=== PATIENT | female | born 1995 | race Caucasian/White ===

== ENCOUNTER 2021-03-18 22:14 | Emergency (ER) | payer OTHER, SELFPAY ==
--- NOTE | ~2021-03-18 | CT_ITS ---
EXAMINATION: CT abdomen pelvis wo con DATE: 03/18/2021 23:09 INDICATION: Right flank pain TECHNIQUE: Computed tomography (CT) of the abdomen and pelvis was performed without intravenous contr ast. The dose-length product (DLP) was 270.22 mGy-cm. Automated exposure control and iterative recons truction technique were employed. COMPARISON: None FINDINGS: Minimal dependent atelectasis is present in the lung bases. The heart size is normal. The l iver, spleen, pancreas, gallbladder, and adrenal glands are normal. There is a [address] one right kidney. No stones are present in the left kidney, ureters, or the bladder. There is no hydr onephrosis or hydroureter. No pathologically enlarged abdominal or pelvic lymph nodes are identified. There is no free intraperitoneal gas or evidence of bowel obstruction. The appendix is normal. There is a fat-containing umbilical hernia. IMPRESSION: 1. No CT correlate for the patient's symptoms. Nonobstructing right nephrolithiasis. Reviewed, dictated and finalized at location A. IMPRESSION: 1. No CT correlate for the patient's symptoms. Nonobstructing right nephrolithi asis.
[2021-03-18 22:20] VITALS: BP 142/98; PULSE 120; RESP 18; TEMP 36.7; O2SAT 99
--- NOTE | 2021-03-18 22:27 | ED.ABDPAIN ---
HPI - Abdominal Pain General Chief Complaint: Abdominal Pain Stated Complaint: Kidney stone Time Seen by Provider: 03/18/21 22:16 History of Present Illness HPI narrative: Right flank pain since yesterday. Radiates down the lateral portion of the leg. Associated with nausea and dysuria. Similar symptoms with kidney stone in the past. No fever, hematuria, vomiting, diarrhea, CP, SOB. Related Data Allergies Allergy/AdvReac Type Severity Reaction Status Date / Time hydromorphone [From Dilaudid] Allergy Anaphylactic Verified 03/18/21 22:28 Shock Review of Systems Review of Systems: All systems reviewed & are unremarkable except as noted in HPI and below Constitutional: Constitutional: Denies fever(s) ENT: Denies sore throat Cardiovascular: Cardiovascular: Denies chest pain Respiratory: Respiratory: Denies dyspnea Gastrointestinal: Gastrointestinal: Reports abdominal pain, Denies diarrhea, Reports nausea and Denies vomiting Genitourinary: Genitourinary: Denies hematuria, Reports dysuria and Reports flank pain Neurologic: Denies numbness and Denies weakness [facility] Past Medical History Medical History (Updated 03/20/21 @ 00:00 by Kobi Jackson) Cash's thyroiditis Kidney stone Social History Social History (Updated 03/18/21 @ 22:30 by Jb Ford MD) Gender identity (if verbalized by the patient): Female Exam Const: General: no acute distress Orientation/consciousness: patient oriented x3 HENMT: Head: normal to inspection Eyes: Pupils: Equal, round and reactive pupils present Neck: Neck: normal visual inspection Resp: Effort & Inspection: normal respiratory effort Auscultation: clear to auscultation bilaterally Cardio: Rate: regular rate Rhythm: regular rhythm GI: GI Palp: Yes Soft to palpation, Yes Tenderness to palpation present (GI) and Yes Guarding due to palpation present (GI) Other: Reaction seems out of proportion Skin: General skin exam: normal color Neuro: General: patient oriented x3 and moves all extremities Speech: normal speech Gait exam (Neuro): Normal gait present Extrem: General: normal to inspection Psych: Appearance: disheveled Mental Status: mental status grossly normal Course Vital Signs Vital signs: Vital Signs Temperature 36.7 C 03/18/21 22:20 Pulse Rate 120 H 03/18/21 22:20 Respiratory Rate 18 03/18/21 22:20 Blood Pressure 142/98 H 03/18/21 22:20 Pulse Oximetry 99 03/18/21 22:20 Temperature 36.7 C 03/18/21 22:20 Pulse Rate 92 03/19/21 02:16 Respiratory Rate 16 03/19/21 02:16 Blood Pressure 121/91 H 03/19/21 02:16 Pulse Oximetry 99 03/19/21 02:16 MDM - Abdominal Pain Differential Diagnosis Differential diagnosis: Likely calculus of kidney, constipation and pancreatitis Medical Records Attestation: I reviewed the patient's medical records. Lab Data Attestation: I reviewed the patient's lab results. Result diagrams: 03/18/21 22:33 03/18/21 22:32 Labs: Lab Results 03/18/21 03/18/21 03/18/21 Range/Units 22:31 22:32 22:33 WBC 9.3 (4.5-10.0) K/mm3 RBC 4.73 (4.2-5.4) M/mm3 Hgb 13.3 (12.0-15.0) g/dL Hct 39.8 (37.0-47.0) % MCV 84.1 (80-100) fl MCH 28.1 (26-34) pg MCHC 33.4 (32-36) g/dl RDW 12.7 (11.5-14.5) % Plt Count 229 (150-375) k/mm3 MPV 12.1 H (7.4-10.4) fl Immature Gran % (Auto) 0.2 (0-0.5) % Neut % (Auto) 52.8 (45.5-73.1) % Lymph % (Auto) 38.4 (18.3-44.2) % [place] % (Auto) 7.6 (2.6-8.5) % Eos % (Auto) 0.6 (0-4.4) % Baso % (Auto) 0.4 (0.2-1.2) % Lymph # (Auto) 3.57 H (0.9-3.2) K/mm3 [place] # (Auto) 0.7 H (0.1-0.6) K/mm3 Eos # (Auto) 0.1 (0-0.3) K/mm3 Baso # (Auto) 0.0 (0.0-0.1) K/mm3 Abs Immat Gran (auto) 0.02 (0.00-0.031) K/mm3 Absolute Neuts (auto) 4.9 (1.3-6.7) K/mm3 Absolute Nucleated RBC 0.0 (0.0-0.012) K/mm3 Nucleated RBC % 0.0 (0.0-0.2) %
[2021-03-18 22:42] LABS: Basophils Percent Auto 0.4 % (0.2-1.2); Eosinophils Absolute Auto 0.1 K/mm3 (0-0.3); Eosinophils Percent Auto 0.6 % (0-4.4); Hematocrit 39.8 % (37.0-47.0); Hemoglobin 13.3 g/dL (12.0-15.0); Immature Granulocyte Absolute 0.02 K/mm3 (0.00-0.031); Immature Granulocyte Percent A 0.2 % (0-0.5); Lymphocytes Absolute Auto 3.57 K/mm3 (0.9-3.2); Lymphocytes Percent Auto 38.4 % (18.3-44.2); Mean Corpuscular HGB Conc 33.4 g/dl (32-36); Mean Corpuscular Hemoglobin 28.1 pg (26-34); Mean Corpuscular Volume 84.1 fl (80-100); Mean Platelet Volume 12.1 fl (7.4-10.4); Monocytes Absolute Auto 0.7 K/mm3 (0.1-0.6); Monocytes Percent Auto 7.6 % (2.6-8.5); Neutrophils Absolute Auto 4.9 K/mm3 (1.3-6.7); Neutrophils Percent Auto 52.8 % (45.5-73.1); Platelet Count Result 229 k/mm3 (150-375); Red Blood Count 4.73 M/mm3 (4.2-5.4); Red Cell Distribution Width 12.7 % (11.5-14.5); White Blood Count 9.3 K/mm3 (4.5-10.0)
[2021-03-18] MEDS: fentaNYL CITRATE INJ (*CRX) 100 MCG/2 ML VIAL 50 MCG IV PUSH (22:44)
[2021-03-18] MEDS: SODIUM CHLORIDE 0.9% IV 1,000 ML 999 ML IV CONT (22:44)
[2021-03-18 22:45] LABS: Add Urine Microscopic? NO; Appearance Urine Clear (Clear); Bilirubin Urine Negative (Negative); Blood Urine Negative (Negative); Color Urine Straw (Yellow); Glucose Urine UA Negative (Negative); Ketones Urine Negative (Negative); Leukocyte Esterase Ur Negative LEU/UL (Negative); Nitrate Urine Negative (Negative); Protein Urine Negative (Negative); Specific Grav Ur 1.009 (1.001-1.035); Urobilinogen Urine Negative mg/dL (<2.0)
[2021-03-18 22:50] LABS: Alanine Aminotransferase 115 U/L (4-35); Albumin Level 4.7 g/dL (3.5-5.1); Alkaline Phosphatase 65 U/L (38-126); Anion Gap 10 mmol/L (8-16); Aspartate Amino Transferase 56 U/L (14-36); Bilirubin,Total 0.3 mg/dL (0.2-1.3); Blood Urea Nitrogen 6 mg/dL (7-17); Calcium 9.9 mg/dL (8.4-10.2); Carbon Dioxide 25 mmol/L (22-30); Chloride 103 mmol/L (98-107); Estimated CRCL calculation 126 ml/min; Estimated Glomerular Filt Rate > 60; Glucose 115 mg/dL (65-110); Lipase 64 U/L (23-300); Potassium 3.8 mmol/L (3.4-5.0); Sodium 138 mmol/L (137-145)
[2021-03-19] MEDS: KETOROLAC 30 MG/ML VIAL (*BKC) IV PUSH (01:43)
[2021-03-19 01:45] VITALS: BP 136/91; PULSE 99; RESP 16; O2SAT 100
[2021-03-19 02:16] VITALS: BP 121/91; PULSE 92; RESP 16; O2SAT 99
== END 2021-03-19 02:18 | disposition home or self-care (01) ==
PROVIDERS: Emergency Medicine; Emergency Provider Emergency Medicine
DX: R10.9 Unspecified abdominal pain (principal); E06.3 Autoimmune thyroiditis; Z87.442 Personal history of urinary calculi; N20.0 Calculus of kidney
CPT/HCPCS: 36415; 74176; 80053; 81003; 81025; 83690; 85025; 96361; 96374; 99284; J1885; J3010; J7030